=== PATIENT | female | born 1950 | race African-American/Black ===

== ENCOUNTER 2022-06-06 14:13 | Emergency (ER) | payer BC, MEDICARE, OTHER ==
[~2022-06-06] VITALS: Ht 177.8 cm; Wt 86.0 kg
[2022-06-06 17:25] LABS: BG BASE EXCESS -2.9 mmol/L (-2.0-2.0); BG CARBOXYHEMOGLOBIN 0.8 % (0.5-1.5); BG DEOXYHEMOGLOBIN 2.2 % (0.0-5.0); BG FRACTION INSPIRED OXYGEN 21; BG HCO3 ACT 20.1 mmol/L (22.0-26.0); BG METHEMOGLOBIN 0.1 % (0.0-1.5); BG OXYGEN SATURATION 97.8 % (92.0-98.5); BG OXYHEMOGLOBIN 96.9 % (94.0-97.0); BG PH 7.458 (7.350-7.450); BG PO2 101.7 mmHg (75.0-100.0); BG SAMPLE SITE RIGHT BRACHIAL; BG TOTAL HEMOGLOBIN 10.6 g/dL (12.0-18.0); BG VENT MODE ROOM AIR
[2022-06-06 17:45] LABS: BASOPHILS % 0.9 % (0.0-2.0); EOSINOPHILS % 1.3 % (0.0-5.0); HEMATOCRIT. 31.7 % (36.0-48.0); HEMOGLOBIN. 10.1 g/dL (12.0-16.0); LYMPHOCYTES % 36.6 % (20.0-50.0); MEAN CORPUSCULAR HEMOGLOBIN 29.3 pg (28.0-32.0); MEAN PLATELET VOLUME 10.2 fl (7.4-10.4); MONOCYTES % 14.6 % (2.0-8.0); NEUTROPHILS % 46.6 % (40.0-76.0); PLATELET 159 x1000/uL (130-400); RED BLOOD CELL COUNT 3.45 mill/uL (4.2-5.4); RED CELL DISTRIBUTION WIDTH 15.9 % (11.6-14.6)
[2022-06-06 17:55] LABS: CHLORIDE 111 mEq/L (98-107)
[2022-06-06 18:10] LABS: T4 FREE 1.59 ng/dL (0.76-1.46)
[2022-06-06] MEDS ORDERED: FUROSEMIDE 20MG/2ML VIAL IVP ONE (18:30)
[2022-06-06] MEDS ORDERED: MAGNESIUM 1 G PREMIX 100 ML IV ONE (18:30)
[2022-06-07 01:54] VITALS: BP 123/70
== END 2022-06-07 02:18 | disposition short-term general hospital (02) ==
LOC: ER 14:13 → CANBEDREQ 19:07 → ER 06-07 02:18
DX: I10 Essential (primary) hypertension (principal); E87.8 Other disorders of electrolyte and fluid balance, not elsewhere classified; Z95.810 Presence of automatic (implantable) cardiac defibrillator; I11.0 Hypertensive heart disease with heart failure; I50.9 Heart failure, unspecified; E11.9 Type 2 diabetes mellitus without complications; Z20.822 Contact with and (suspected) exposure to COVID-19
CPT/HCPCS: 36415; 36600; 71045; 80053; 82375; 82805; 82962; 83690; 83735; 83880; 84439; 84443; 84481; 84484; 85025; 87426; 93005; 96365; 96366; 96375; 99285; C9803; J1940; J3475

== ENCOUNTER 2022-08-26 14:31 | Emergency (ER) | payer OTHER ==
[~2022-08-26] VITALS: Ht 175.3 cm; Wt 140.0 kg
[2022-08-26 16:01] LABS: CHLORIDE 116 mEq/L (98-107)
[2022-08-26 16:02] LABS: BASOPHILS % 0.8 % (0.0-2.0); HEMATOCRIT. 27.3 % (36.0-48.0); HEMOGLOBIN. 8.6 g/dL (12.0-16.0); MEAN CORPUSCULAR HEMOGLOBIN 29.3 pg (28.0-32.0); MEAN CORPUSCULAR VOLUME 92.8 fL (81.0-99.0); MEAN PLATELET VOLUME 9.7 fl (7.4-10.4); MONOCYTES % 14.1 % (2.0-8.0); NEUTROPHILS % 45.1 % (40.0-76.0); PLATELET 134 x1000/uL (130-400); RED BLOOD CELL COUNT 2.94 mill/uL (4.2-5.4); RED CELL DISTRIBUTION WIDTH 15.4 % (11.6-14.6)
[2022-08-26 16:27] LABS: INR 1.3; PROTHROMBIN TIME 13.6 sec (9.6-11.0)
[2022-08-26] MEDS ORDERED: LORAZEPAM 2MG/ML CPJ IM ONE (19:45)
[2022-08-27 03:25] LABS: CLARITY URINE CLEAR (CLEAR); COLOR URINE YELLOW (YELLOW); KETONES URINE NEGATIVE (NEGATIVE); LEUKOCYTE ESTERASE URINE NEGATIVE (NEGATIVE); NITRITE URINE NEGATIVE (NEGATIVE); OCCULT BLOOD URINE NEGATIVE (NEGATIVE); PH URINE 5.5 (4.5-8.0); PROTEIN URINE 1+ (NEGATIVE); SPECIFIC GRAVITY URINE 1.017 (1.005-1.030)
[2022-08-27 08:31] VITALS: BP 147/83
== END 2022-08-27 09:09 | disposition short-term general hospital (02) ==
LOC: ER 14:31
DX: G93.40 Encephalopathy, unspecified (principal); I50.9 Heart failure, unspecified; F03.90 Unspecified dementia, unspecified severity, without behavioral disturbance, psychotic disturbance, mood disturbance, and anxiety; E11.9 Type 2 diabetes mellitus without complications; Z95.0 Presence of cardiac pacemaker; Z20.822 Contact with and (suspected) exposure to COVID-19
CPT/HCPCS: 36415; 70450; 71045; 74176; 80053; 80307; 80329; 81003; 82140; 83690; 83880; 84443; 84484; 85025; 85610; 86850; 86900; 86901; 87426; 93005; 96372; 99285; C9803; J2060